=== PATIENT | female | born 1995 | race Caucasian/White ===

== ENCOUNTER 2020-10-19 10:29 | Emergency (ER) | payer OTHER ==
[~2020-10-19] VITALS: Ht 154.9 cm; Wt 86.4 kg
[~2020-10-19 10:29] MED LIST: LABE100T5 PO; PNV1TABL4 PO
[2020-10-19 10:41] VITALS: BP 137/75
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
[2020-10-19] MEDS ORDERED: NAPR-514 PO (11:47)
[2020-10-19] MEDS ORDERED: CYCL10TA2 PO (11:47)
== END 2020-10-19 12:15 | disposition home or self-care (01) ==
LOC: ER 10:29
DX: S13.4XXA Sprain of ligaments of cervical spine, initial encounter (principal); M54.5 Low back pain; R51.9 Headache, unspecified; Z98.890 Other specified postprocedural states; Z98.51 Tubal ligation status; V98.8XXA Other specified transport accidents, initial encounter; Y93.89 Activity, other specified; Y92.413 State road as the place of occurrence of the external cause; Y99.8 Other external cause status
CPT/HCPCS: 70450; 72125; 72128; 72131; 81025; 99285